=== PATIENT | female | born 1980 | race Caucasian/White ===

== ENCOUNTER 2020-05-21 08:06 | Outpatient (REF) | payer MEDICAID, SELFPAY ==
[2020-05-21 11:22] LABS: HCG Quantitative 120 mIU/mL
[2020-05-21 16:47] LABS: Hematocrit 34.6 % (37-47); Hemoglobin 11.2 g/dl (12.0-16.0); Mean Corpuscular HGB Conc 32.4 g/dl (31.0-35.0); Mean Corpuscular Volume 95.8 fL (80-98); Mean Platelet Volume 9.9 fL (9.4-12.3); Platelet Count 305 X10*3/uL (160-400); Red Blood Count 3.61 X10*6/uL (4.20-5.50); Red Cell Distribution Width 11.9 % (11.0-16.0); White Blood Count 5.7 X10*3/uL (4.8-10.8)
[2020-05-21 17:21] LABS: Anion Gap 13 (12-20); Blood Urea Nitrogen 11 mg/dL (9-16); Calcium 9.4 mg/dL (8.4-10.2); Carbon Dioxide 26 mmol/L (22-29); Chloride 105 mmol/L (96-108); Estimated Glomerular Filt Rate > 60; Glucose Random 96 mg/dL (60-115); Potassium 4.6 mmol/l (3.3-5.1); Sodium 139 mmol/L (135-145)
[2020-05-21 17:30] LABS: HCG Quantitative 110 mIU/mL
== END 2020-05-21 08:07 | disposition home or self-care (01) ==
LOC: HO.LAB 08:06
PROVIDERS: PCP Internal Medicine; Visit Provider Advanced Practice Midwife
DX: O20.9 Hemorrhage in early pregnancy, unspecified (principal); N94.89 Other specified conditions associated with female genital organs and menstrual cycle
CPT/HCPCS: 36415; 80048; 84702; 85027; 99202; 99212

== ENCOUNTER 2020-05-21 09:36 | Outpatient (REF) | payer MEDICAID, SELFPAY ==
--- NOTE | 2020-05-21 12:24 | US_ITS ---
EXAMINATION: FIRST TRIMESTER OB ULTRASOUND CLINICAL INFORMATION: Hemorrhage/bleeding in early . Beta hCG level is 120 (3-4 weeks). COMPARISON: None TECHNIQUE: Transabdominal and transvaginal first trimester OB ultrasound. FINDINGS: The uterus is anteverted and measures 11.3 x 2.7 x 5.1 cm in dimension. There is a small anterior uterine body fibroid measuring 0.9 x 0.7 x 1.1 cm. No intrauterine is seen. The endometrium does not appear thickened measuring 0.4 cm. There are several small hyperechoic foci seen in the superior endometrium. Appearance is questionable for possible calcifications or blood. There is a small simple appearing cyst just posterior to the endometrium measuring 0.3 x 0.2 x 0.2 cm. The cervix is normal appearing. The right ovary is enlarged and abnormal appearing. The right ovary measures 7.5 x 3.8 x 3.5 cm. There is a 2.4 x 2 x 1.9 cm hyperechoic area in the right ovary questionable for a complex cyst. There is an adjacent adnexal hypoechoic heterogeneous partially solid partially cystic lesion measuring 4.1 x 3.2 x 3.7 cm. There is a large amount of complex fluid surrounding the right ovary and in the posterior cul-de-sac. The left ovary is slightly enlarged, measures 4.3 x 3 x 3.5 cm and contains a 3.3 x 2.2 x 2.6 cm simple cyst. US/US OB <= 14 weeks fetus IMPRESSION: No intrauterine seen. Enlarged abnormal appearing right ovary, complex partially solid partially cystic hypoechoic right adnexal lesion and large amount of complex fluid surrounding the right ovary and in the posterior cul-de-sac. Appearance is suspicious for possible right adnexal ectopic . Given low beta hCG level, very early intrauterine and hemorrhagic right ovarian cyst could also be considered. Short-term follow-up OB ultrasound and correlation with quantitative beta hCG levels recommended. Slightly enlarged left ovary and 3.3 x 2.2 x 2.6 cm simple left ovarian cyst.
== END 2020-05-21 09:37 | disposition home or self-care (01) ==
LOC: HO.US 09:36
PROVIDERS: PCP Internal Medicine; Visit Provider Advanced Practice Midwife
DX: O20.9 Hemorrhage in early pregnancy, unspecified (principal)
CPT/HCPCS: 76801; 76817

== ENCOUNTER 2020-05-22 07:26 | Outpatient (REF) | payer MEDICAID, SELFPAY ==
[2020-05-22 08:20] LABS: Hematocrit 34.5 % (37-47); Hemoglobin 11.1 g/dl (12.0-16.0); Mean Corpuscular HGB Conc 32.2 g/dl (31.0-35.0); Mean Corpuscular Hemoglobin 30.5 pg (27.0-33.0); Mean Corpuscular Volume 94.8 fL (80-98); Mean Platelet Volume 10.1 fL (9.4-12.3); Platelet Count 293 X10*3/uL (160-400); Red Blood Count 3.64 X10*6/uL (4.20-5.50); Red Cell Distribution Width 11.9 % (11.0-16.0); White Blood Count 5.1 X10*3/uL (4.8-10.8)
[2020-05-22 08:45] LABS: HCG Quantitative 101 mIU/mL
[2020-05-28 11:31] LABS: CT PCR NOT DETECTED (Not Detect.); NG PCR NOT DETECTED (Not Detect.)
== END 2020-05-22 07:27 | disposition home or self-care (01) ==
LOC: HO.LAB 07:26
PROVIDERS: PCP Internal Medicine; Visit Provider Obstetrics & Gynecology
DX: O26.899 Other specified pregnancy related conditions, unspecified trimester (principal); O20.9 Hemorrhage in early pregnancy, unspecified; O34.80 Maternal care for other abnormalities of pelvic organs, unspecified trimester; N94.89 Other specified conditions associated with female genital organs and menstrual cycle; N83.209 Unspecified ovarian cyst, unspecified side; Z79.899 Other long term (current) drug therapy; Z87.891 Personal history of nicotine dependence
CPT/HCPCS: 36415; 84702; 85027; 87491; 87591; 99212

== ENCOUNTER 2020-05-24 12:39 | Outpatient (REF) | payer MEDICAID, SELFPAY ==
[2020-05-24 13:56] LABS: HCG Quantitative 53 mIU/mL
== END 2020-05-24 12:40 | disposition home or self-care (01) ==
LOC: HO.LAB 12:39
PROVIDERS: PCP Internal Medicine; Visit Provider Obstetrics & Gynecology
DX: O03.9 Complete or unspecified spontaneous abortion without complication (principal); O09.529 Supervision of elderly multigravida, unspecified trimester
CPT/HCPCS: 84702

== ENCOUNTER 2020-05-29 08:23 | Outpatient (REF) | payer MEDICAID, SELFPAY ==
[2020-05-29 10:55] LABS: HCG Quantitative 12 mIU/mL
== END 2020-05-29 08:24 | disposition home or self-care (01) ==
LOC: HO.LAB 08:23
PROVIDERS: PCP Internal Medicine; Visit Provider Obstetrics & Gynecology
DX: O03.9 Complete or unspecified spontaneous abortion without complication (principal); N83.209 Unspecified ovarian cyst, unspecified side
CPT/HCPCS: 84702; 99212

== ENCOUNTER 2020-06-11 10:20 | Outpatient (REF) | payer MEDICAID, SELFPAY ==
--- NOTE | 2020-06-11 10:57 | US_ITS ---
EXAMINATION: LIMITED OB ULTRASOUND CLINICAL INFORMATION: Ovarian cyst. Technologist history indicates spontaneous . COMPARISON: Previous exam 05/21/2020 TECHNIQUE: Transabdominal and transvaginal pelvic ultrasound was performed. Transvaginal exam was performed for better visualization of the uterus and ovaries. FINDINGS: The uterus is a slightly anteverted and retroflexed and measures 9.1 x 3.8 x 4.9 cm in dimension. No intrauterine is seen. Endometrial thickness measures 0.4 cm. There is no evidence of retained products of conception. There are several small echogenic foci again questionable for small calcifications. The cervix is normal appearing. There is a 1.4 x 1 x 1.2 cm hypoechoic lesion in the anterior uterine body probably representing a fibroid. Both ovaries are enlarged. The right ovary measures 7.2 x 4.8 x 1.7 cm. There is a 5 x 4.9 x 3.9 cm complex right ovarian cyst with some septations and internal echoes. This is increased from previous exam when this measured 2.4 x 2 x 1.9 cm. There is a 3 x 2.1 x 2.1 cm hypoechoic lesion in the right adnexa with thick wall, internal echoes and septations. This measured 4.1 x 3.2 x 3.7 cm on previous exam and is decreased in size. Both these lesions appear avascular. The previously identified large amount of complex fluid in the right pelvis is no longer. The the left ovary is enlarged and measures 4.8 x 2.9 x 3.6 cm. There is a complex right ovarian cyst measuring 5 x 4.9 x 3.9 cm. This has multiple septations and some internal echoes. This is increased in size from 3.3 x 2.2 x 2.6 cm on previous exam There is no fluid in the cul-de-sac. US/US OB transvaginal IMPRESSION: No evidence of intrauterine . No evidence of retained products of conception. Enlarged ovaries. Bilateral large complex ovarian cysts increased from 05/21/2020 exam. Interval decrease in size in the complex right adnexal lesion. Complex fluid in the right pelvis and cul-de-sac is no longer seen. Continued correlation with quantitative beta hCG and ultrasound follow-up recommended. Small uterine fibroid.
== END 2020-06-11 10:21 | disposition home or self-care (01) ==
LOC: HO.HMGCX 10:20
PROVIDERS: PCP Internal Medicine; Visit Provider Obstetrics & Gynecology
DX: N83.209 Unspecified ovarian cyst, unspecified side (principal); O03.9 Complete or unspecified spontaneous abortion without complication
CPT/HCPCS: 76815; 76817

== ENCOUNTER → 2020-06-13 12:08 | Outpatient (BNVA) | payer MEDICAID, SELFPAY | PROVIDERS: PCP Internal Medicine; Visit Provider Obstetrics & Gynecology | DX: Z76.89 Persons encountering health services in other specified circumstances (principal) ==

== ENCOUNTER 2020-06-19 10:59 | Outpatient (REF) | payer MEDICAID, SELFPAY ==
[2020-06-19 12:46] LABS: HCG Quantitative < 2 mIU/mL
[2020-06-20 12:52] LABS: CA-125 13 U/mL (<35)
== END 2020-06-19 11:00 | disposition home or self-care (01) ==
LOC: HO.LAB 10:59
PROVIDERS: PCP Internal Medicine; Visit Provider Obstetrics & Gynecology
DX: O03.9 Complete or unspecified spontaneous abortion without complication (principal)
CPT/HCPCS: 84702; 86304

== ENCOUNTER 2020-09-16 10:44 | Outpatient (REF) | payer MEDICAID, SELFPAY ==
--- NOTE | ~2020-09-16 | US_ITS ---
EXAMINATION: PELVIC ULTRASOUND CLINICAL INFORMATION: Ovarian cyst COMPARISON: None TECHNIQUE: Transabdominal and transvaginal pelvic ultrasound was performed. Transvaginal exam was performed for better visualization of the uterus and ovaries. FINDINGS: The uterus is anteverted and measures 7.8 x 4.5 x 5.5 cm in dimension. There is a 1.2 x 1 x 1.1 cm anterior uterine body intramural fibroid. No other focal uterine lesion is seen. Endometrial thickness is normal measuring 0.5 cm. The cervix is normal. The right ovary measures 6 3.3 x 3.2 x 2.6 cm, volume 14 mL. The left ovary measures 2.3 x 2.3 x 2.1 cm, volume 5.6 mL. There are small bilateral simple ovarian cysts, largest measuring 1.5 x 1.2 x 1.3 cm on the left. There is no fluid in the pelvis. US/US transvaginal IMPRESSION: Small anterior uterine body intramural fibroid. Small simple bilateral ovarian cysts, largest measuring 1.5 x 1.2 x 1.3 cm on the left.
--- NOTE | ~2020-09-16 | US_ITS ---
EXAMINATION: PELVIC ULTRASOUND CLINICAL INFORMATION: Ovarian cyst COMPARISON: None TECHNIQUE: Transabdominal and transvaginal pelvic ultrasound was performed. Transvaginal exam was performed for better visualization of the uterus and ovaries. FINDINGS: The uterus is anteverted and measures 7.8 x 4.5 x 5.5 cm in dimension. There is a 1.2 x 1 x 1.1 cm anterior uterine body intramural fibroid. No other focal uterine lesion is seen. Endometrial thickness is normal measuring 0.5 cm. The cervix is normal. The right ovary measures 6 3.3 x 3.2 x 2.6 cm, volume 14 mL. The left ovary measures 2.3 x 2.3 x 2.1 cm, volume 5.6 mL. There are small bilateral simple ovarian cysts, largest measuring 1.5 x 1.2 x 1.3 cm on the left. There is no fluid in the pelvis. US/US pelvic complete IMPRESSION: Small anterior uterine body intramural fibroid. Small simple bilateral ovarian cysts, largest measuring 1.5 x 1.2 x 1.3 cm on the left.
== END 2020-09-16 10:45 | disposition home or self-care (01) ==
LOC: HO.US 10:44
PROVIDERS: Visit Provider Obstetrics & Gynecology
DX: N83.299 Other ovarian cyst, unspecified side (principal)
CPT/HCPCS: 76830; 76856

== ENCOUNTER → 2020-09-30 10:42 | Outpatient (BNVA) | payer MEDICAID, SELFPAY | PROVIDERS: Visit Provider Obstetrics & Gynecology ==

== ENCOUNTER 2020-11-28 11:56 | Outpatient (REF) | payer MEDICAID, SELFPAY ==
--- NOTE | ~2020-11-28 | MM_ITS ---
EXAMINATION: MM SCREENING DIGITAL BREAST TOMOSYNTHESIS, BILATERAL CLINICAL INFORMATION: Screening. Asymptomatic. The lifetime risk of breast cancer based on the Tyrer-Cuzick Model is 9.9%. COMPARISON: Mammography: None TECHNIQUE: Digital breast tomosynthesis is performed in both the craniocaudal and mediolateral oblique views along with computer-aided detection (CAD). Synthesized 2D images are generated from the tomosynthesis. FINDINGS: The breasts are heterogeneously dense, which may obscure small masses (ACR BI-RADS breast composition Category c). There are no significant masses, abnormal calcifications, or other abnormalities. MM/MM tomosynthesis screening BI IMPRESSION: There are no significant changes from prior study. ASSESSMENT: BI-RADS 1: Negative RECOMMENDATION: Routine annual mammography screening. This patient's information was entered into a reminder system with a target due date for their next mammogram.
== END 2020-11-28 11:57 | disposition home or self-care (01) ==
LOC: HO.MAMMO 11:56
PROVIDERS: PCP Internal Medicine; Visit Provider Internal Medicine
DX: Z12.31 Encounter for screening mammogram for malignant neoplasm of breast (principal)
CPT/HCPCS: 77063; 77067

== ENCOUNTER 2021-10-02 11:57 | Outpatient (REF) | payer OTHER, SELFPAY ==
[2021-10-02 16:03] LABS: CT PCR NOT DETECTED (Not Detect.); NG PCR NOT DETECTED (Not Detect.)
[2021-10-06 14:26] LABS: HPV mRNA E6/E7 rflx Not Detected (Not Detected)
== END 2021-10-02 11:58 | disposition home or self-care (01) ==
LOC: HO.LAB 11:57
PROVIDERS: Visit Provider Obstetrics & Gynecology
DX: Z01.419 Encounter for gynecological examination (general) (routine) without abnormal findings (principal); Z11.51 Encounter for screening for human papillomavirus (HPV)
CPT/HCPCS: 87491; 87591; 87624; 88142

== ENCOUNTER 2023-04-05 10:49 | Outpatient (REF) | payer OTHER, SELFPAY ==
[2023-04-05 11:09] LABS: MANUAL DIFF FLAG NO
[2023-04-05 11:48] LABS: Basophils Absolute Auto 0.1 X10*3/uL (0.0-0.2); Basophils Percent Auto 1.1 % (0-2); Eosinophils Absolute Auto 0.5 X10*3/uL (0.0-0.4); Eosinophils Percent Auto 7.5 % (0-4); Hematocrit 36.1 % (37.0-47.0); Hemoglobin 11.9 g/dl (12.0-16.0); Imm Gran Abs Auto 0.02 X10*3/uL (0.00-0.03); Imm Gran Pct Auto 0.3 % (0.0-0.4); Lymphocytes Absolute Auto 1.4 X10*3/uL (1.2-4.9); Lymphocytes Percent Auto 22.8 % (20-40); Mean Corpuscular Hemoglobin 30.9 pg (27.0-33.0); Mean Corpuscular Volume 93.8 fL (80.0-98.0); Mean Platelet Volume 10.7 fL (9.4-12.3); Monocytes Absolute Auto 0.4 X10*3/uL (0.1-1.2); Monocytes Percent Auto 6.6 % (2-11); Neutrophils Absolute Auto 3.9 x10*3/uL (2.0-8.3); Neutrophils Percent Auto 61.7 % (45-73); Platelet Count 295 X10*3/uL (160-400); Red Blood Count 3.85 X10*6/uL (4.20-5.50); Red Cell Distribution Width 11.7 % (11.0-16.0); White Blood Count 6.2 X10*3/uL (4.8-10.8)
[2023-04-05 12:51] LABS: Alanine Aminotransferase 12 U/L (0-31); Albumin Level 4.2 g/dL (3.5-5.0); Alkaline Phosphatase 50 U/L (39-117); Anion Gap 13 (12-20); Aspartate Amino Transferase 15 U/L (5-31); Bilirubin Total 0.5 mg/dL (0.0-1.0); Blood Urea Nitrogen 12 mg/dL (9-16); Calcium 9.3 mg/dL (8.4-10.2); Carbon Dioxide 22 mmol/L (22-29); Chloride 106 mmol/L (96-108); Cholesterol 178 mg/dL (<200); Estimated Glomerular Filt Rate > 60; Glucose Random 89 mg/dL (60-115); Potassium 3.8 mmol/L (3.3-5.1); Sodium 137 mmol/L (135-145); Total Protein 7.3 g/dL (6.5-8.0)
== END 2023-04-05 10:50 | disposition home or self-care (01) ==
LOC: HO.LAB 10:49
PROVIDERS: PCP Internal Medicine; Visit Provider Internal Medicine
DX: J45.909 Unspecified asthma, uncomplicated (principal); J30.1 Allergic rhinitis due to pollen; R63.5 Abnormal weight gain; K59.00 Constipation, unspecified
CPT/HCPCS: 36415; 80053; 82465; 84443; 85025

== ENCOUNTER 2023-05-31 07:30 | Outpatient (AMB) | payer OTHER, SELFPAY ==
--- NOTE | 2023-05-31 07:33 | MHC.OFFVIS ---
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 Sexually active: Yes Sexual orientation: Straight/Heterosexual Gender identity: Female Female Reproductive History Menstrual Age of Menarche: 13 Date of last menstrual period: 05/24/23 control method: pills Total pregnancies: 4 Full term: 1 Number of Living Children: 1 Ab spontaneous: 3 Date of last pap smear: 10/02/21 Date of Mammogram: 11/28/20 Review of Systems Const All systems reviewed & are unremarkable except as noted in HPI and below Card Reports as per HPI Resp Reports as per HPI GI Reports as per HPI and Reports no additional complaints Reports as per HPI Physical Exam Vital Signs: BMI result Body Mass Index 28.1 Const General: cooperative, healthy appearing and comfortable Chest Chest palpation & inspection: normal inspection of the chest and normal palpation of entire chest wall Breast/axilla inspection: normal inspection of the breasts and normal inspection of the axillae Breast/axilla palpation: normal palpation of the breasts, normal palpation of the axillae and no axillary lymphadenopathy Resp Effort & Inspection: normal respiratory effort Auscultation: clear to auscultation bilaterally Percussion: percussion normal Cardio Palpation: normal PMI Rate: regular rate Rhythm: regular rhythm Heart sounds: no murmurs and no rubs Peripheral pulses: Peripheral pulses 2+ throughout GI Inspection: Yes normal to inspection Palpation (GI): Soft to palpation, nontender, no guarding, not rigid and No hepatosplenomegaly present Percussion: Yes normal to percussion Auscultation: normal bowel sounds Rectal Exam - Female: deferred General: Yes bladder normal to palpation External Female Exam: No lesion Speculum Exam - Vagina: normal appearance of the vagina, normal palpation, normal vaginal discharge and not erythematous Speculum Exam - Cervix: normal appearance of the cervix and normal palpation Bimanual exam- vagina & uterus: normal bimanual exam, normal palpation, uterine size normal, bladder normal to palpation, consistency normal and normal palpation Bimanual Exam- Adnexa, other: normal adnexae, no masses and no tenderness Assessment & Plan Assessment & Plan (1) Well woman exam: Code(s): Z01.419 - Encounter for gynecological examination (general) (routine) without abnormal findings Plan: Cotesting not indicated this. Mammogram ordered. Counseled the patient about the recommended dietary allowance of 1000 mg of Calcium & 600 IU of vitamin D. The patient was instructed to perform monthly self-breast exams and to schedule an annual exam in a year; All questions answered and the patient verbalized understanding. Instructed the patient to schedule annual exam in a year (2) Bloating: Code(s): R14.0 - Abdominal distension (gaseous) Plan: Discussed with the patient differential diagnosis of bloating including GI , ovarian pathology and others. Will order pelvic ultrasound to rule out adnexal pathology, instructions given the patient to schedule a 2 week ultrasound follow-up appointment and to contact her PCP for further management peer Orders: Orders US pelvic and transvaginal Today R14.0 - Abdominal distension (gaseous) MM screening mammo BI Today Z12.31 - Encounter for screening mammogram for malignant neoplasm of breast Coding Level of Care Code Est Pt Prev Care 40-64y(15694) Diagnoses Well woman exam Z01.419 Bloating R14.0
[2023-05-31 07:35] VITALS: BP 118/74; BMI 28.1
== END 2023-05-31 08:26 | disposition home or self-care (01) ==
PROVIDERS: PCP Internal Medicine; Visit Provider Obstetrics & Gynecology
DX: Z01.419 Encounter for gynecological examination (general) (routine) without abnormal findings (principal); R14.0 Abdominal distension (gaseous)
CPT/HCPCS: 99396

== ENCOUNTER → 2023-05-31 07:30 | Outpatient (BNVA) | payer OTHER, SELFPAY | PROVIDERS: PCP Internal Medicine; Visit Provider Obstetrics & Gynecology ==

== ENCOUNTER 2023-06-28 10:08 | Outpatient (REF) | payer OTHER, SELFPAY ==
--- NOTE | ~2023-06-28 | US_ITS ---
EXAMINATION: US PELVIS COMPLETE CLINICAL INFORMATION: Abdominal distention COMPARISON: Pelvic ultrasound 09/16/2020 TECHNIQUE: Transabdominal and transvaginal imaging was performed. FINDINGS: The uterus is of normal size and echogenicity measuring 8.5 x 3.2 x 5.1 cm. A regular homogeneous endometrium is identified measuring 0.3 cm. A 1 cm subserosal myoma in the anterior body of the uterus decreased from prior previously 1.2 cm. Few nonspecific punctate calcifications noted in the endometrium and cervix, possibly dystrophic such as in the setting of calcified myomas and/or vascular. Both ovaries are of normal size and echogenicity. The right measures 2.3 x 1.3 x 2.1 cm for a volume of 3.1 mL. The left measures 2.1 x 1.4 x 1.3 cm for a volume of 2.0 mL. There is no pelvic free fluid. US/US pelvic and transvaginal IMPRESSION: 1. A 1 cm subserosal myoma in the anterior body of the uterus decreased in size from prior. 2. Few nonspecific punctate calcifications noted in the endometrium and cervix, possibly dystrophic such as in the setting of calcified myomas and/or vascular.
--- NOTE | ~2023-06-28 | MM_ITS ---
EXAMINATION: MM SCREENING DIGITAL BREAST TOMOSYNTHESIS, BILATERAL CLINICAL INFORMATION: Screening. Asymptomatic. COMPARISON: Mammography: 11/28/2020. TECHNIQUE: Digital breast tomosynthesis is performed in both the craniocaudal and mediolateral oblique views along with computer-aided detection (CAD). Synthesized 2D images are generated from the tomosynthesis. FINDINGS: The breasts are heterogeneously dense, which may obscure small masses (ACR BI-RADS breast composition Category c). There are no suspicious masses, suspicious grouped calcifications, or areas of architectural distortion in either breast. The parenchymal pattern is stable from prior exams. There are no skin or axillary abnormalities. MM/MM tomosynthesis screening BI IMPRESSION: No mammographic evidence of malignancy. ASSESSMENT: BI-RADS BI-RADS 1 - Negative RECOMMENDATION: Routine annual mammography screening. 1 year F/U This examination should not preclude the clinical evaluation of a suspicious palpable abnormality. This patient's information was entered into a reminder system with a target due date for their next mammogram.
== END 2023-06-28 10:09 | disposition home or self-care (01) ==
LOC: HO.MAMMO 10:08
PROVIDERS: PCP Internal Medicine; Visit Provider Obstetrics & Gynecology
DX: Z12.31 Encounter for screening mammogram for malignant neoplasm of breast (principal); R14.0 Abdominal distension (gaseous)
CPT/HCPCS: 76830; 76856; 77063; 77067

== ENCOUNTER → 2023-06-28 10:15 | Outpatient (BNV) | payer OTHER, SELFPAY | PROVIDERS: PCP Internal Medicine; Visit Provider Radiology Diagnostic Radiology | DX: Z12.31 Encounter for screening mammogram for malignant neoplasm of breast (principal) | CPT/HCPCS: 77063; 77067 ==

== ENCOUNTER 2023-08-16 08:49 | Outpatient (AMB) | payer OTHER, SELFPAY ==
--- NOTE | 2023-08-16 08:51 | A.OFFVIS_ITS ---
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 Ultrasound done recently showed the following: IMPRESSION: 1. A 1 cm subserosal myoma in the anter ior body of the uterus decreased in size from prior. 2. Few nonspecific punctate calcificati ons noted in the endometrium and cervix, possibly dystrophic such as in the setting of calcified myomas and/or vascular. 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 Sexual orientation: Straight/Heterosexual Gender identity: Female Female Reproductive History Menstrual Age of Menarche: 13 Date of last menstrual period: 08/07/23 Review of Systems Const All systems reviewed & are unremarkable except as noted in HPI and below Reports as per HPI and Reports no additional complaints GI Reports no additional complaints Reports no additional complaints Physical Exam Vital Signs: Last Vital Signs BP 118/62 08/16/23 08:53 BMI result Body Mass Index 28.0 Assessment & Plan Assessment & Plan (1) Bloating: Code(s): R14.0 - Abdominal distension (gaseous) Plan: Discussed with the patient the finding on ultrasound showing no evidence of ovarian pathology or pathologic free fluid in the pelvis, the patient was reassured, instructions given the patient to schedule an appointment with her PCP to rule out other non obgyn nurse causes of her bloating (2) Myoma: Code(s): D21.9 - Benign neoplasm of connective and other soft tissue, unspecified Plan: Discussed with the patient the findings on pelvic ultrasound & the risk of myosarcoma; discussed with the patient the options of treatment including expectant management versus hysterectomy; the pros and cons, risks benefits of each approach were discussed with the patient including the fact that in cases of myosarcoma, surgical treatment can lead to early diagnosis and positively affects the prognosis; after further discussion, the patient decided to proceed with expectant management. Will repeat pelvic ultrasound periodically. Instructions given to patient to call in case any of the following occurs: pressure symptoms, abnormal uterine bleeding, pelvic pain; and to schedule a future office follow-up appointment for reassessment and to order a repeat ultrasound . All questions answered, the patient verbalized understanding and agreed with the plan . Coding Level of Care Code Est Pt Level 3 (78411) Diagnoses Bloating R14.0 Myoma D21.9
[2023-08-16 08:53] VITALS: BP 118/62; BMI 28.0
== END 2023-08-16 09:19 | disposition home or self-care (01) ==
LOC: HO.HWS 08:49
PROVIDERS: PCP Internal Medicine; Visit Provider Obstetrics & Gynecology
DX: R14.0 Abdominal distension (gaseous) (principal); D21.9 Benign neoplasm of connective and other soft tissue, unspecified
CPT/HCPCS: 99213

== ENCOUNTER → 2023-08-16 08:49 | Outpatient (BNVA) | payer OTHER, SELFPAY | PROVIDERS: PCP Internal Medicine; Visit Provider Obstetrics & Gynecology ==

== ENCOUNTER 2023-10-18 09:42 | Outpatient (REF) | payer OTHER, SELFPAY ==
--- NOTE | ~2023-10-18 | XR_ITS ---
EXAMINATION: XR CHEST 2 VIEWS CLINICAL INFORMATION: Bronchitis 2 weeks prior, with ongoing cough and congestion. COMPARISON: None. TECHNIQUE: Frontal and lateral views of the chest were obtained. FINDINGS: The heart, great vessels, pulmonary vasculature and mediastinum are normal. The lungs show no focal infiltrate, effusion or pneumothorax. There is mild bibasilar bronchial wall thickening. There is no acute osseous abnormality. XR/XR chest 2V IMPRESSION: 1. No focal infiltrate or congestive heart failure is seen. 2. There is mild bilateral bronchiolar wall thickening, consistent with the provided history of recent bronchitis.
== END 2023-10-18 09:43 | disposition home or self-care (01) ==
LOC: HO.XRAY 09:42
PROVIDERS: PCP Internal Medicine; Visit Provider Internal Medicine
DX: R05.9 Cough, unspecified (principal); J45.909 Unspecified asthma, uncomplicated
CPT/HCPCS: 71046

== ENCOUNTER 2024-07-17 12:48 | Outpatient (REF) | payer OTHER, SELFPAY | END 2024-07-17 12:49 | disposition home or self-care (01) | LOC: HO.MAMMO 12:48 | PROVIDERS: PCP Internal Medicine; Visit Provider Internal Medicine | DX: Z12.31 Encounter for screening mammogram for malignant neoplasm of breast (principal) | CPT/HCPCS: 77063; 77067 ==

== ENCOUNTER → 2024-07-17 13:00 | Outpatient (BNV) | payer OTHER, SELFPAY | PROVIDERS: PCP Internal Medicine; Visit Provider Internal Medicine | DX: Z12.31 Encounter for screening mammogram for malignant neoplasm of breast (principal) | CPT/HCPCS: 77063; 77067 ==

== ENCOUNTER 2024-11-20 09:31 | Outpatient (AMB) | payer OTHER, SELFPAY ==
--- NOTE | 2024-11-20 09:35 | A.OFFPC_ITS ---
Vital Signs 11/20/24 09:38 11/20/24 09:51 Height 5 ft 4 in Weight 72.575 kg BMI 27.5 BP 146/102 H 152/96 H Respiration 14 Pulse 72 Pulse Source Pulse Oximeter Temp 97.2 F Temp Source Temporal Artery Scan Pulse Oximetry (%) 99 Oxygen Delivery Method Room Air Intake Visit Reasons: refills - see comments Regional Engineer Required: No Accompanied by: Self / Same As Patient Allergies No Known Allergies Allergy (Verified 11/20/24 09:37) HPI HPI Comments History of Present Illness Details 44-year-old female with history of eczem a, asthma presents to the office today for management of chronic conditions and to establish care. Eczema-has been managing with eduplanet KK sea miranda, Shayna, and emollient moisturizers. Present on bilateral forearms Asthma-reports symptoms are uncontrolled for about 1 year. States she has been using albuterol inhaler daily. Compliant with Advair. She states that she does often experience breathlessness and shortness of breath with occasional wheezing primarily with exertion. There is occasional chest tightness. She denies any lightheadedness, palpitations, syncope. No weight gain. No edema. No cough. She does question whether uncontrolled anxiety also triggers this. Ematoao-LJE-8 score 5. Reports frequent anxiety. She does also endorse hot flashes/sweats. No unintentional weight loss. She does continue to have regular periods but is taking oral contraception. Denies any depression. Elevated blood pressure reading-blood pressure on repeat 150/96. Has never had issues with elevated blood pressures. Health maintenance: Bwwsqziea-to-vo-date Colonoscopy-has never undergone procedure Pap fzgwe-xq-ht-date ROS: General: No fevers, malaise, unintentional weight loss HEENT: No blurred vision, diplopia. No sore throat, nasal congestion, rhinorrhea, sinus pain, ear pain Cardiovascular: See HPI Respiratory: See HPI MSK: No myalgia, back pain Neuro: No headaches, weakness, paresthesias Psych: See HPI Skin: No rashes or lesions EXAM: Constitutional - Awake and Alert, No apparent distress Eyes - PERRLA, EOMI Cardiovascular - S1S2, RRR, No edema Respiratory - Normal lung expansion, Normal respiratory effort, No respiratory distress, CTA bilaterally Extremities - no calf tenderness bilaterally, no swelling Skin - Warm/Dry Neurological - Alert & oriented x3, CN II-XII in tact, 5/5 strength BUE and BLE Psychological - Appropriate affect [facility] Medical History (Updated 11/20/24 @ 10:03 by MARGARITA Sanderson) Anxiety Normocytic anemia History of asthma Social History Household Members: Spouse Household Members Other:: daughter Housing: House Alcohol intake: current Alcohol intake frequency: a few times a month Patient Tobacco Use Status: Never used Tobacco Current occupational status: employed 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 1. Little interest or pleasure in doing things: not at all 2. Feeling down, depressed, or hopeless: not at all 3. Trouble falling or staying asleep, or sleeping too much: several days 4. Feeling tired or having little energy: several days 5. Poor appetite or overeating: not at all 6. Feeling bad about yourself - or that you are a failure or have let yourself or your family down: not at all 7. Trouble concentrating on things, such as reading the newspaper or watching television: not at all 8. Moving or speaking so slowly that other people could have noticed. Or the opposite - being so fidgety or restless that you have been moving around a lot more than usual: not at all 9. Thoughts that you would be better off or of hurting yourself in some way: not at all Total score: 2 Source: Developed by Drs. Geovanny Alvarez, Marlin Lopez, Jeffy Lilly and colleagues, with an educational lakshmi from [employer]. Thrive Questionnaire Date Thrive assessed: 11/20/24 I am a: Patient What is your living situation today?: I have a steady place to live Within the past 12 months, did the food you bought not last and you didn't have the money to get more?: Never true Within the past 12 months, did you worry whether your food would run out before you got money to buy more?: Never true Do you have trouble paying for medicines?: No Do you have trouble getting transportation to medical appointments?: No Do you have trouble paying your heating and electricity bill?: No Do you have trouble taking care of your child, family member or friend?: No Do you have trouble with day-to-day activities such as bathing, preparing meals, shopping, managing finances, etc.?: No Are you currently unemployed and looking for a job?: No Are you interested in more education?: No Please select the resources that you would like help with: None THRIVE Score: 0 PRADEEP-7 AMB Questionnaire PRADEEP-7 Date PRADEEP - 7 assessed: 11/20/24 Feeling nervous, anxious, or on edge: 1 = Several days Not being able to stop or control worryin = Several days Worrying too much about different things: 1 = Several days Trouble relaxin = Several days Being so restless that it is hard to sit still: 0 = Not at all Becoming easily annoyed or irritable: 1 = Several days Feeling afraid as if something awful might happen: 0 = Not at all Total PRADEEP-7 score (0-4 normal; 5-9 mild; 10-14 moderate; 15-21 severe): 5 Source: Developed by Drs. Geovanny Alvarez, Marlin Lopez, Jeffy Lilly and colleagues, with an educational lakshmi from [employer]. Physical exam (Primary Care) Vital Signs: Last Vital Signs Temp 97.2 F 11/20/24 09:38 Pulse 72 11/20/24 09:38 Resp 14 11/20/24 09:38 BP 152/96 H 11/20/24 09:51 Pulse Ox 99 11/20/24 09:38 Oxygen Delivery Method Room Air 11/20/24 09:38 BMI result Body Mass Index 27.5 Tobacco/Smoking Status: Tobacco use Status Patient Tobacco Use Status Never used Tobacco 11/20/24 09:40 PHQ-9: PHQ-9 Score PHQ-9: Total score 2 11/20/24 09:57 Thrive Assessment: Date of Thrive Assessment Date Thrive assessed 11/20/24 11/20/24 09:57 Coding Level of Care Code New Pt Level 4 (51958) Complex EM visit Add On G2211 Diagnoses Normocytic anemia D64.9 Asthma J45.909 Elevated blood pressure reading R03.0 Anxiety F41.9 Breathlessness R06.81 Assessment & Plan Assessment & Plan (1) Normocytic anemia: Code(s): D64.9 - Anemia, unspecified Category: Medical Plan: Chronic. CBC ordered. Will also evaluate iron panel. (2) Asthma: Code(s): J45.909 - Unspecified asthma, uncomplicated Category: Medical Plan: Uncontrolled. Though question component of anxiety that could be contributing symptoms. Continue Advair, albuterol as needed. She is referred for PFT. Continue allergy medications. (3) Elevated blood pressure reading: Code(s): R03.0 - Elevated blood-pressure reading, without diagnosis of hypertension Category: Medical Plan: No prior history of elevated blood pressures, no history of hypertension. We will recheck blood pressure at follow-up visit in 6 weeks. (4) Anxiety: Code(s): F41.9 - Anxiety disorder, unspecified Category: Medical Plan: Uncontrolled. We will trial sertraline 50 mg daily. She is counseled on dosing as well as side effects including black box warning. (5) Breathlessness: Code(s): R06.81 - Apnea, not elsewhere classified Category: Medical Plan: Possibly related to asthma versus anxiety. We will check chest x-ray, referred for PFT. Given she is also taking estrogen containing OCP, will also check D- dimer. Plan Follow-up in the office in 6 weeks. Take medications as prescribed. Labs to be completed following visit today as well as chest x-ray. Referred for PFT. Orders: Orders XR chest 2V Today R06.09 - Other forms of dyspnea, R06.81 - Apnea, not elsewhere classified Basic Metabolic Panel Today D64.9 - Anemia, unspecified, J45.909 - Unspecified asthma, uncomplicated, Z13.220 - Encounter for screening for lipoid disorders Lipid Panel Today D64.9 - Anemia, unspecified, J45.909 - Unspecified asthma, uncomplicated, Z13.220 - Encounter for screening for lipoid disorders PFT pulmonary function test Today J45.909 - Unspecified asthma, uncomplicated D Dimer High Sensitivity Today R06.09 - Other forms of dyspnea, R06.81 - Apnea, not elsewhere classified Complete Blood Count Auto Diff Today D64.9 - Anemia, unspecified, J45.909 - Un specified asthma, uncomplicated, Z13.220 - Encounter for screening for lipoid disorders IRON PROFILE Today D64.9 - Anemia, unspecified, J45.909 - Unspecified asthma, uncomplicated, Z13. - Encounter for screening for lipoid disorders Vitamin D 25-OH Total Today D64.9 - Anemia, unspecified, J45.909 - Unspecified asthma, uncomplicated, Z13. - Encounter for screening for lipoid disorders Medications: New sertraline Take 1/2 tab daily x 7 days, then take 1 tab daily 50 mg PO DAILY 30 tabs 0RF
[2024-11-20 09:38] VITALS: BP 146/102; PULSE 72; RESP 14; TEMP 36.2; O2SAT 99; BMI 27.5
[2024-11-20 09:51] VITALS: BP 152/96
== END 2024-11-20 09:59 | disposition home or self-care (01) ==
LOC: HO.HMCHD 09:31
PROVIDERS: PCP Internal Medicine; Visit Provider Physician Assistant
DX: D64.9 Anemia, unspecified (principal); J45.909 Unspecified asthma, uncomplicated; R03.0 Elevated blood-pressure reading, without diagnosis of hypertension; F41.9 Anxiety disorder, unspecified; R06.81 Apnea, not elsewhere classified

== ENCOUNTER 2024-11-20 09:31 | Outpatient (REF) | payer OTHER, SELFPAY ==
--- NOTE | ~2024-11-20 | XR_ITS ---
EXAMINATION: XR CHEST CLINICAL INFORMATION: R06.81 - Apnea, not elsewhere classified COMPARISON: None available. TECHNIQUE: 2 views of the chest were obtained. FINDINGS: The cardiac, hilar, and mediastinal contours are normal. The lungs are clear bilaterally. There is no pneumothorax or pleural effusion. There is no focal osseous or soft tissue abnormality. XR/XR chest 2V IMPRESSION: Normal chest. Electronically signed by: Eric Messer MD 11/20/2024 03:31 PM EDT
[2024-11-20 10:16] LABS: MANUAL DIFF FLAG NO
[2024-11-20 11:06] LABS: Basophils Percent Auto 0.8 % (0-2); Eosinophils Absolute Auto 0.3 X10*3/uL (0.0-0.4); Eosinophils Percent Auto 5.4 % (0-4); Hematocrit 36.8 % (37.0-47.0); Hemoglobin 12.4 g/dl (12.0-16.0); Imm Gran Abs Auto 0.01 X10*3/uL (0.00-0.03); Imm Gran Pct Auto 0.2 % (0.0-0.4); Lymphocytes Absolute Auto 1.5 X10*3/uL (1.2-4.9); Lymphocytes Percent Auto 29.4 % (20-40); Mean Corpuscular HGB Conc 33.7 g/dl (31.0-35.0); Mean Corpuscular Hemoglobin 30.8 pg (27.0-33.0); Mean Corpuscular Volume 91.3 fL (80.0-98.0); Mean Platelet Volume 10.4 fL (9.4-12.3); Monocytes Absolute Auto 0.3 X10*3/uL (0.1-1.2); Monocytes Percent Auto 6.8 % (2-11); Neutrophils Absolute Auto 2.9 x10*3/uL (2.0-8.3); Neutrophils Percent Auto 57.4 % (45-73); Platelet Count 230 X10*3/uL (160-400); Red Blood Count 4.03 X10*6/uL (4.20-5.50); Red Cell Distribution Width 11.4 % (11.0-16.0)
[2024-11-20 11:15] LABS: D Dimer High Sensitivity < 150 NG/ML
[2024-11-20 11:57] LABS: Anion Gap 10 (12-20); Blood Urea Nitrogen 10 mg/dL (9-16); Calcium 8.7 mg/dL (8.4-10.2); Carbon Dioxide 26 mmol/L (22-29); Chloride 106 mmol/L (96-108); Cholesterol 186 mg/dL (<200); Estimated Glomerular Filt Rate > 60; Glucose Random 92 mg/dL (60-115); HDL Cholesterol 65 mg/dL (>40); Iron 72 mcg/dL (30-160); LDL Cholesterol Calculated 100 mg/dL (<100); Percent Iron Saturation 22 % (15-50); Potassium 4.1 mmol/L (3.3-5.1); Sodium 138 mmol/L (135-145); Total Iron Binding Capacity 323 mcg/dL (228-428); Triglycerides 107 mg/dL (<150); Unsaturated Iron Binding 251 ug/dL
[2024-11-20 12:20] LABS: Vitamin D 25-OH Total 11.8 ng/mL (>30)
== END 2024-11-20 09:32 | disposition home or self-care (01) ==
LOC: HO.LAB 09:31
PROVIDERS: PCP Internal Medicine; Visit Provider Physician Assistant
DX: J45.909 Unspecified asthma, uncomplicated (principal); D64.9 Anemia, unspecified; Z13.220 Encounter for screening for lipoid disorders; R06.09 Other forms of dyspnea; R06.81 Apnea, not elsewhere classified
CPT/HCPCS: 36415; 71046; 80048; 80061; 82306; 83540; 85025; 85379

== ENCOUNTER → 2024-11-20 10:16 | Outpatient (BNV) | payer OTHER, SELFPAY | PROVIDERS: PCP Internal Medicine; Visit Provider Radiology Diagnostic Radiology | DX: R06.81 Apnea, not elsewhere classified (principal) | CPT/HCPCS: 71046 ==

== ENCOUNTER 2024-12-25 10:32 | Outpatient (AMB) | payer OTHER, SELFPAY ==
--- NOTE | 2024-12-25 10:40 | A.OFFVIS_ITS ---
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 No complaints. 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 Sexual orientation: Straight/Heterosexual Gender identity: Female Female Reproductive History Menstrual Age of Menarche: 13 Date of last pap smear: 10/02/21 Date of Mammogram: 07/17/24 Review of Systems Const All systems reviewed & are unremarkable except as noted in HPI and below Card Reports as per HPI Resp Reports as per HPI GI Reports as per HPI and Reports no additional complaints Reports as per HPI Physical Exam Vital Signs: BMI result Body Mass Index 27.5 Const General: cooperative, healthy appearing and comfortable Chest Chest palpation & inspection: normal inspection of the chest and normal palpation of entire chest wall Breast/axilla inspection: normal inspection of the breasts and normal inspection of the axillae Breast/axilla palpation: normal palpation of the breasts, normal palpation of the axillae and no axillary lymphadenopathy Resp Effort & Inspection: normal respiratory effort Auscultation: clear to auscultation bilaterally Percussion: percussion normal Cardio Palpation: normal PMI Rate: regular rate Rhythm: regular rhythm Heart sounds: no murmurs and no rubs Peripheral pulses: Peripheral pulses 2+ throughout GI Inspection: Yes normal to inspection Palpation (GI): Soft to palpation, nontender, no guarding, not rigid and No hepatosplenomegaly present Percussion: Yes normal to percussion Auscultation: normal bowel sounds Rectal Exam - Female: deferred General: Yes bladder normal to palpation External Female Exam: No lesion Speculum Exam - Vagina: normal appearance of the vagina, normal palpation, normal vaginal discharge and not erythematous Speculum Exam - Cervix: normal appearance of the cervix and normal palpation Bimanual exam- vagina & uterus: normal bimanual exam, normal palpation, uterine size normal, bladder normal to palpation, consistency normal and normal palpation Bimanual Exam- Adnexa, other: normal adnexae, no masses and no tenderness Assessment & Plan Assessment & Plan (1) Well woman exam: Code(s): Z01.419 - Encounter for gynecological examination (general) (routine) without abnormal findings Category: Medical Plan: Cotesting not indicated this year. Instructions given the patient to schedule next screening Mammogram in 07/16. Will refer to GI for screening colonoscopy Counseled the patient about the recommended dietary allowance of 1000 mg of Calcium & 600 IU of vitamin D. The patient was instructed to perform monthly self-breast exams and to schedule an annual exam in a year; All questions answered and the patient verbalized understanding. Instructed the patient to schedule annual exam in a year Orders: Referrals Gastroenterology Referral Z12.11 - Encounter for screening for malignant neoplasm of colon Coding Level of Care Code Est Pt Prev Care 40-64y(27840) Diagnoses Well woman exam Z01.419
[2024-12-25 10:42] VITALS: BP 146/90; BMI 27.5
== END 2024-12-25 11:03 | disposition home or self-care (01) ==
LOC: HO.HWS 10:32
PROVIDERS: PCP Internal Medicine; Visit Provider Obstetrics & Gynecology
DX: Z01.419 Encounter for gynecological examination (general) (routine) without abnormal findings (principal)
CPT/HCPCS: 99396; 99459

== ENCOUNTER 2025-01-01 10:02 | Outpatient (AMB) | payer OTHER, SELFPAY ==
--- NOTE | 2025-01-01 10:03 | MHC.PC.OV ---
Vital Signs 01/01/25 10:08 01/01/25 10:25 Height 5 ft 4 in Weight 68.946 kg BMI 26.1 BP 154/86 H 160/96 H Blood Pressure Location Rt brachial Position Sitting Respiration 16 Pulse 79 Pulse Source Pulse Oximeter Temp 97.3 F Temp Source Temporal Artery Scan Pulse Oximetry (%) 98 Oxygen Delivery Method Room Air Intake Visit Reasons: 6 Week F/U - see comments Mainstreaming Facilitator Required: No Accompanied by: Self / Same As Patient Allergies No Known Allergies Allergy (Verified 01/01/25 10:04) Medication List - Last Reconciled 01/01/25 by MARGARITA Sanderson albuterol sulfate 90 mcg/actuation 2 puffs inhalation Q6H PRN cholecalciferol (vitamin D3) 1,250 mcg PO QWEEK desogestrel-ethinyl estradiol 0.15-0.03 mg (Apri) 1 tab PO DAILY 3 months fexofenadine (Shayna Allergy) 180 mg PO DAILY fluticasone propion-salmeterol 250-50 mcg/dose (Advair Diskus) 1 inh inhalation BID losartan 50 mg PO DAILY sertraline 75 mg (1.5 x 50 mg) PO Q24H triamcinolone acetonide 0.1% 1 appl topical BID PRN Tobacco use date assessed: 01/01/25 HPI HPI Comments History of Present Illness Details 44-year-old female with history of asthma, elevated blood pressure readings, anxiety presents to the office today for evaluation. Asthma-controlled. Has been using Advair with rare use of albuterol inhaler. She is requesting forms for PMLF for intermittent time off due to asthma flares. Anxiety-does report improvements and anxiety with sertraline that was initiated 6 weeks ago. Gets them in score improved from 5-3. No panic Hypertension-has had multiple elevated blood pressure readings over the past months. Blood pressure on recheck in the office today 160/96. She does report drinking alcohol several times weekly with 3 drinks consumed in 1 session. She is a former smoker. On review of last labs, there is no significant kidney disease. ROS: General: No fevers, malaise, unintentional weight loss HEENT: No blurred vision, diplopia. No sore throat, nasal congestion, rhinorrhea, sinus pain, ear pain Cardiovascular: No chest pain, palpitations, or leg edema Respiratory: No shortness of breath, wheezing, cough GI: No abdominal pain, nausea, vomiting, diarrhea, constipation, melena, hematochezia : No dysuria, hematuria, increased urinary frequency, decreased urinary output MSK: No myalgia, back pain Neuro: No headaches, weakness, paresthesias Skin: No rashes or lesions EXAM: Constitutional - Awake and Alert, No apparent distress Eyes - PERRL Cardiovascular - S1S2, RRR, No edema Respiratory - Normal lung expansion, Normal respiratory effort, No respiratory distress, CTA bilaterally Extremities - no calf tenderness bilaterally, no swelling Skin - Warm/Dry Neurological - Alert & oriented x3 Psychological - Appropriate affect [facility] Medical History (Updated 01/01/25 @ 10:31 by MARGARITA Sanderson) HTN (hypertension) Anxiety Normocytic anemia History of asthma Social History Household Members: Spouse Household Members Other:: daughter Housing: House Alcohol intake: current Alcohol intake frequency: a few times a week Patient Tobacco Use Status: Former Tobacco user e-Cigarette/Vaping Use: Never Used Current occupational status: employed 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 How often do you have a drink containing alcohol?: Monthly or less 2. How many drinks containing alcohol do you have on a typical day when you are drinking?: 1 or 2 Total Score: 1 SUDHAKAR-7 AMB Questionnaire SUDHAKAR-7 Date SUDHAKAR - 7 assessed: 11/20/24 Feeling nervous, anxious, or on edge: 1 = Several days Not being able to stop or control worryin = Several days Worrying too much about different things: 0 = Not at all Trouble relaxin = Several days Being so restless that it is hard to sit still: 0 = Not at all Becoming easily annoyed or irritable: 0 = Not at all Feeling afraid as if something awful might happen: 0 = Not at all Total SUDHAKAR-7 score (0-4 normal; 5-9 mild; 10-14 moderate; 15-21 severe): 3 Source: Developed by Drs. Geovanny L. AntonioMarlin reed, Jeffy Lilly and colleagues, with an educational lakshmi from [employer]. Physical exam (Primary Care) Vital Signs: Last Vital Signs Temp 97.3 F 01/01/25 10:08 Pulse 79 01/01/25 10:08 Resp 16 01/01/25 10:08 BP 154/86 H 01/01/25 10:08 Pulse Ox 98 01/01/25 10:08 Oxygen Delivery Method Room Air 01/01/25 10:08 BMI result Body Mass Index 26.1 Tobacco/Smoking Status: Tobacco use Status Tobacco use date assessed 01/01/25 01/01/25 10:12 Patient Tobacco Use Status Former Tobacco user 01/01/25 10:12 e-Cigarette/Vaping Use Never Used 01/01/25 10:12 Thrive Assessment: Date of Thrive Assessment Date Thrive assessed 11/20/24 01/01/25 10:12 Coding Level of Care Code Est Pt Level 4 (70162) Diagnoses Anxiety F41.9 HTN (hypertension) I10 Asthma J45.909 Assessment & Plan Assessment & Plan (1) Anxiety: Code(s): F41.9 - Anxiety disorder, unspecified Category: Medical Plan: Improved, but still present. Sudhakar 7 score 3. Would like to increase sertraline to 75 mg daily. Continue with coping mechanisms (2) HTN (hypertension): Code(s): I10 - Essential (primary) hypertension Category: Medical Plan: Uncontrolled. Prescribed losartan 50 mg daily. Counseled on dosing and side effects. (3) Asthma: Code(s): J45.909 - Unspecified asthma, uncomplicated Category: Medical Plan: Stable. Continue maintenance inhalers, albuterol p.r.n.. Advised to bring PFML paperwork to the office for completion Plan Follow-up in the office in 2-3 weeks for blood pressure check Medications: New losartan 50 mg PO DAILY 90 tabs 1RF Changed From sertraline 50 mg PO Q24H 90 tabs 1RF To sertraline 75 mg (1.5 x 50 mg) PO Q24H 90 tabs 1RF
[2025-01-01 10:08] VITALS: BP 154/86; PULSE 79; RESP 16; TEMP 36.3; O2SAT 98; BMI 26.1
[2025-01-01 10:25] VITALS: BP 160/96
== END 2025-01-01 10:29 | disposition home or self-care (01) ==
LOC: HO.HMCHD 10:03
PROVIDERS: PCP Physician Assistant; Visit Provider Physician Assistant
DX: F41.9 Anxiety disorder, unspecified (principal); I10 Essential (primary) hypertension; J45.909 Unspecified asthma, uncomplicated

== ENCOUNTER 2025-01-22 08:10 | Outpatient (AMB) | payer OTHER, SELFPAY ==
--- NOTE | 2025-01-22 08:13 | A.OFFPC_ITS ---
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 Accompanied by: Self / Same As Patient Allergies No Known Allergies Allergy (Verified 01/22/25 08:32) Medication List - Last Reconciled 01/22/25 by Olivier White MD albuterol sulfate 90 mcg/actuation 2 puffs inhalation Q6H PRN cholecalciferol (vitamin D3) 1,250 mcg PO QWEEK desogestrel-ethinyl estradiol 0.15-0.03 mg (Apri) 1 tab PO DAILY 3 months fexofenadine (Shayna Allergy) 180 mg PO DAILY fluticasone propion-salmeterol 250-50 mcg/dose (Advair Diskus) 1 inh inhalation BID fluticasone propion-salmeterol 45-21 mcg/actuation 1 puff inhalation BID hydrochlorothiazide 25 mg PO DAILY losartan 50 mg PO DAILY sertraline 75 mg (1.5 x 50 mg) PO Q24H triamcinolone acetonide 0.1% 1 appl topical BID PRN Tobacco use date assessed: 01/01/25 [facility] Medical History HTN (hypertension) Anxiety Normocytic anemia History of asthma Social History Household Members: Spouse Household Members Other:: daughter Housing: House Alcohol intake: current Alcohol intake frequency: a few times a week Patient Tobacco Use Status: Former Tobacco user e-Cigarette/Vaping Use: Never Used Current occupational status: employed 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 Geovanny Alvarez, Marlin Lopez, Jeffy Lilly and colleagues, with an educational lakshmi from [employer]. Physical exam (Primary Care) Vital Signs: Last Vital Signs Temp 97.7 F 01/22/25 08:17 Pulse 76 01/22/25 08:17 Resp 16 01/22/25 08:17 BP 156/66 H 01/22/25 08:17 Pulse Ox 99 01/22/25 08:17 Oxygen Delivery Method Room Air 01/22/25 08:17 Care Plan Goal for BP management: Elevated BP, diuretic added to the regimen BMI result Body Mass Index 27.1 Tobacco/Smoking Status: Tobacco use Status Tobacco use date assessed 01/01/25 01/22/25 08:19 Patient Tobacco Use Status Former Tobacco user 01/22/25 08:19 e-Cigarette/Vaping Use Never Used 01/22/25 08:19 Thrive Assessment: Date of Thrive Assessment Date Thrive assessed 11/20/24 01/22/25 08:19 Coding Level of Care Code Est Pt Level 4 (51655) Complex EM visit Add On G2211 Diagnoses Anxiety F41.9 HTN (hypertension) I10 Assessment & Plan Assessment & Plan (1) Anxiety: Code(s): F41.9 - Anxiety disorder, unspecified Category: Medical Plan: Continue Sertraline at same dosage (2) HTN (hypertension): Code(s): I10 - Essential (primary) hypertension Category: Medical Plan: BP is still elevated. HCTZ added to the regimen. Plan History of Present Illness - The patient is a 44-year-old female presenting with management of hypertension and anxiety, and discussion of preventative care measures. - Essential Hypertension: The patient is on losartan and has a family history of hypertension. Her blood pressure remains elevated despite medication. - Anxiety Disorder: The patient's sertraline dosage was increased to 75 mg, which has improved her symptoms. - Asthma: The patient experiences occasional flare-ups, requiring time off work. She has [facility] for these episodes. - Preventative care: The patient prefers a colonoscopy for colorectal cancer screening and has no known family history of the disease. 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 - Family: Lives with her 18-year-old daughter, who is a red mud thickener operator and plans to study finance in college. The patient's partner is also present in the household. - Exercise: The patient walks frequently as part of her job but has not engaged in additional exercise recently. - Diet: Reports a decent diet and is advised to monitor weight due to medication effects. Review of Systems - Cardiovascular: Reports family history of hypertension. Denies smoking. - Respiratory: Reports occasional asthma flare-ups. - Psychological: Reports improvement in anxiety symptoms with increased sertraline dosage. Physical Exam General: Cooperative and healthy appearing Nutritional Appearance: Well nourished Orientation/consciousness: Patient oriented x3 Limitations: No limitations Head: Normal to inspection General: Appearance normal, both eyes and all related structures Neck: Normal visual inspection Chest: Normal palpation of entire chest wall Respiratory: Asthma flares up occasionally, requires paperwork for PFMLA. ormal respiratory effort Neurology: Patient oriented x3. Results Plan 1. Essential Hypertension - Continue losartan and add a second antihypertensive medication for better control. - Monitor blood pressure regularly and adjust medications as needed. 2. Anxiety Disorder - Continue sertraline at 75 mg and monitor for symptom improvement. 3. Asthma - Provide PFMLA paperwork to accommodate work absences during flare-ups. 4. Preventative Care: Colon Cancer Screening - Schedule a colonoscopy as per patient's preference. Discussion Notes I discussed with the patient the importance of managing her hypertension with a combination of medications and regular monitoring. We also talked about her anxiety management with sertraline and the need for PFMLA paperwork to manage her asthma-related work absences. Additionally, we reviewed colorectal cancer screening options, and she opted for a colonoscopy. Patient Instructions - Continue taking losartan and sertraline as prescribed. - Monitor blood pressure regularly at home. - Maintain a healthy diet and exercise routine. - Schedule and attend the colonoscopy appointment. - Submit PFMLA paperwork to employer for asthma-related absences. Orders: Referrals Gastroenterology Referral Z12.11 - Encounter for screening for malignant neoplasm of colon Medications: New hydrochlorothiazide 25 mg PO DAILY 90 tabs 1RF
[2025-01-22 08:17] VITALS: BP 156/66; PULSE 76; RESP 16; TEMP 36.5; O2SAT 99; BMI 27.1
== END 2025-01-22 08:31 | disposition home or self-care (01) ==
LOC: HO.HMCHD 08:11
PROVIDERS: PCP Physician Assistant; Visit Provider Internal Medicine
DX: F41.9 Anxiety disorder, unspecified (principal); I10 Essential (primary) hypertension

== ENCOUNTER 2025-03-05 08:18 | Outpatient (AMB) | payer OTHER, SELFPAY ==
--- NOTE | 2025-03-05 08:19 | A.OFFVIS_ITS ---
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 Sexual orientation: Straight/Heterosexual Gender identity: Female Female Reproductive History Menstrual Age of Menarche: 13 Date of last menstrual period: 02/21/25 Review of Systems Const All systems reviewed & are unremarkable except as noted in HPI and below Reports as per HPI and Reports no additional complaints GI Reports no additional complaints Reports no additional complaints Physical Exam Vital Signs: Last Vital Signs BP 138/82 03/05/25 08:24 BMI result Body Mass Index 27.1 Assessment & Plan Assessment & Plan (1) Family planning: Code(s): Z30.09 - Encounter for other general counseling and advice on contraception Category: Social Hx Plan: Discussed with the patient the different options of control including control pills/Nuvaring, DMPA, different types of IUD ?s ( cu vs progesterone) , sterilization. All the pros, cons, risks and benefits of each were discussed with the patient. The patient decided to go ahead with Mirena IUD, so a more detailed discussion was carried on including mechanism of action, risks (infection, uterine perforation, failure with ectopic , septic AB, ovarian cyst and pelvic pain, increased breast cancer risk and others) benefits (efficient contraceptive method, others), GC/CG will be taken during IUD insertion and the patient was asked to call day one of next cycle for IUD insertion. Coding Level of Care Code Est Pt Level 3 (07380) Diagnoses Family planning Z30.09
[2025-03-05 08:24] VITALS: BP 138/82; BMI 27.1
== END 2025-03-05 08:58 | disposition home or self-care (01) ==
LOC: HO.HWS 08:18
PROVIDERS: PCP Physician Assistant; Visit Provider Obstetrics & Gynecology
DX: Z30.09 Encounter for other general counseling and advice on contraception (principal)
CPT/HCPCS: 99213

== ENCOUNTER 2025-03-27 13:52 | Outpatient (AMB) | payer OTHER, SELFPAY ==
--- NOTE | 2025-03-27 13:47 | MHC.PC.OV ---
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 Accompanied by: Self / Same As Patient Allergies No Known Allergies Allergy (Verified 03/27/25 13:47) Medication List - Last Reconciled 03/27/25 by MARGARITA Sanderson albuterol sulfate 90 mcg/actuation 2 puffs inhalation Q6H PRN fexofenadine (Shayna Allergy) 180 mg PO DAILY PRN fluticasone propion-salmeterol 230-21 mcg/actuation 2 puffs inhalation BID hydrochlorothiazide 25 mg PO DAILY losartan 50 mg PO DAILY sertraline 75 mg (1.5 x 50 mg) PO Q24H triamcinolone acetonide 0.1% 1 appl topical BID PRN Tobacco use date assessed: 01/01/25 HPI HPI Comments History of Present Illness Details 44-year-old female with history of asthma, elevated blood pressure readings, anxiety presents to the office today for evaluation. Asthma-controlled. Has been using Advair with rare use of albuterol inhaler. Reports she prefers the inhaler rather than powder. Has FMLA but reports she may require increase to 2 days, 2 times per month for intermittent flare-ups which typically occur during this time per year. She is a former smoker. Has upcoming appointment with pulmonology in 2 months. Anxiety-does report improvements and anxiety with sertraline that was initiated 6 weeks ago. Has been experiencing panic attacks related to her grandfather's passing recently as well as her daughter leaving for college but is doing better. Hypertension-has had multiple elevated blood pressure readings over the past months. Now taking losartan 50 mg daily and hydrochlorothiazide 25 mg daily. Has also been taken off of her OCP and will be starting Mirena ROS: General: No fevers, malaise, unintentional weight loss HEENT: No blurred vision, diplopia. No sore throat, nasal congestion, rhinorrhea, sinus pain, ear pain Cardiovascular: No chest pain, palpitations, or leg edema Respiratory: No shortness of breath, wheezing, cough GI: No abdominal pain, nausea, vomiting, diarrhea, constipation, melena, hematochezia : No dysuria, hematuria, increased urinary frequency, decreased urinary output MSK: No myalgia, back pain Neuro: No headaches, weakness, paresthesias Skin: No rashes or lesions EXAM: Constitutional - Awake and Alert, No apparent distress Eyes - PERRL Cardiovascular - S1S2, RRR, No edema Respiratory - Normal lung expansion, Normal respiratory effort, No respiratory distress, CTA bilaterally Extremities - no calf tenderness bilaterally, no swelling Skin - Warm/Dry Neurological - Alert & oriented x3 Psychological - Appropriate affect [facility] Medical History HTN (hypertension) Anxiety Normocytic anemia History of asthma Social History Household Members: Spouse Household Members Other:: daughter Housing: House Alcohol intake: current Alcohol intake frequency: a few times a week Patient Tobacco Use Status: Former Tobacco user e-Cigarette/Vaping Use: Never Used Current occupational status: employed 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 Geovanny Alvarez, Marlin Lopez, Jeffy Lilly and colleagues, with an educational lakshmi from [employer]. Physical exam (Primary Care) Vital Signs: Last Vital Signs Temp 96.8 F 03/27/25 13:58 Pulse 68 03/27/25 13:58 Resp 16 03/27/25 13:58 BP 132/84 03/27/25 13:58 Pulse Ox 98 03/27/25 13:58 Oxygen Delivery Method Room Air 03/27/25 13:58 BMI result Body Mass Index 27.3 Tobacco/Smoking Status: Tobacco use Status Tobacco use date assessed 01/01/25 03/27/25 13:49 Patient Tobacco Use Status Former Tobacco user 03/27/25 13:49 e-Cigarette/Vaping Use Never Used 03/27/25 13:49 Thrive Assessment: Date of Thrive Assessment Date Thrive assessed 11/20/24 03/27/25 13:49 Coding Level of Care Code Est Pt Level 4 (46008) Complex EM visit Add On G2211 Diagnoses Anxiety F41.9 HTN (hypertension) I10 Asthma J45.909 Assessment & Plan Assessment & Plan (1) Anxiety: Code(s): F41.9 - Anxiety disorder, unspecified Category: Medical Plan: Greatly improved. Continue sertraline 75 mg daily. Positive coping mechanisms (2) HTN (hypertension): Code(s): I10 - Essential (primary) hypertension Category: Medical Plan: Controlled. Continue off of OCP. Continue hydrochlorothiazide and losartan as prescribed (3) Asthma: Code(s): J45.909 - Unspecified asthma, uncomplicated Category: Medical Plan: Stable. Continue maintenance inhalers, albuterol p.r.n.. Follow-up with pulmonology as scheduled. Will adjust FMLA paperwork once received Plan Follow-up in the office in 6 months Medications: New fluticasone propion-salmeterol 230-21 mcg/actuation 2 puffs inhalation BID 12 grams 1RF Discontinued cholecalciferol (vitamin D3) Discontinued Reason: Doctor's Order 1,250 mcg PO QWEEK 6 caps 0RF fluticasone propion-salmeterol 250-50 mcg/dose (Wixela Inhub) Discontinued Reason: Doctor's Order 1 inh PO BID 60 ea 1RF
[2025-03-27 13:58] VITALS: BP 132/84; PULSE 68; RESP 16; TEMP 36; O2SAT 98; BMI 27.3
== END 2025-03-27 14:12 | disposition home or self-care (01) ==
LOC: HO.HMCHD 13:52
PROVIDERS: PCP Physician Assistant; Visit Provider Physician Assistant
DX: F41.9 Anxiety disorder, unspecified (principal); I10 Essential (primary) hypertension; J45.909 Unspecified asthma, uncomplicated

== ENCOUNTER 2025-06-04 10:37 | Outpatient (AMB) | payer OTHER, SELFPAY ==
[2025-06-04 10:39] VITALS: BP 142/88; PULSE 77; O2SAT 99; BMI 29.7
--- NOTE | 2025-06-04 10:39 | MHC.OFFVIS ---
Vital Signs 06/04/25 10:39 Height 5 ft 4 in Weight 173 lb 1.006 oz BMI 29.7 BP 142/88 H Blood Pressure Location Lt brachial Position Sitting Pulse 77 Pulse Source Pulse Oximeter Pulse Oximetry (%) 99 Oxygen Delivery Method Room Air Intake Visit Reasons: Asthma Allergies No Known Allergies Allergy (Verified 06/04/25 10:42) HPI Comments Details: Dariana is a pleasant 44-year-old female, former less than 10 pack year history, quit 19 years ago with underlying childhood asthma. She was referred by PCP for pulmonary evaluation. She has a history of asthma since and has never required intubation, although she has used a nebulizer in the past. She reports using her maintenance Advair inhaler, which she finds to be working for the most part, but still requires daily use of her albuterol inhaler for wheezing and shortness of breath. Her asthma symptoms are triggered by cold weather and illnesses such as sinus infections, which she reports getting frequently, and bronchitis, which she had twice last year. She notes that when she gets sick, the illness tends to linger and can take up to a month for her to fully recover. She also has allergies and owns two cats. She has never had allergy testing. The patient has a remote smoking history, having started at age 15 and quit 19 years ago when she was . She had a normal chest X-ray in November but has never undergone a pulmonary function test. Her family history is positive for asthma in her mother and grandmother. She denies any occupational exposures. Results - Labs: Previous blood work showed an elevated eosinophil count. - Imaging: Chest X-ray in November was normal. 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 Sexual orientation: Straight/Heterosexual Gender identity: Female Female Reproductive History Menstrual Age of Menarche: 13 Review of Systems Narrative Const Denies chills, Denies excessive sweating, Denies fever(s), Denies headache(s) and Denies night sweats Eyes Denies dry eyes and Denies irritation ENT Reports Normal hearing present and Denies headache(s) Card Denies chest pain, Denies chest pain at rest, Denies chest pain with activity, Denies claudication, Denies leg edema, Reports dyspnea on exertion, Denies orthopnea and Denies paroxysmal nocturnal dyspnea Resp Denies change in phlegm color, Denies chest congestion, Reports cough, Denies hemoptysis, Denies excessive phlegm production, Denies pain on inspiration, Denies pain with cough, Reports dyspnea on exertion, Denies stridor and Reports wheezing Musc Denies myalgias Neuro Reports Normal hearing present and Denies headache(s) Endo Denies excessive sweating Doyle/Lymph Denies lymphadenopathy Aller/Immun Reports wheezing Physical Exam Exam Exam: Vital Signs: Last Vital Signs Pulse 77 06/04/25 10:39 BP 142/88 H 06/04/25 10:39 Pulse Ox 99 06/04/25 10:39 Oxygen Delivery Method Room Air 06/04/25 10:39 BMI result Body Mass Index 29.7 Const General: cooperative, healthy appearing, comfortable, no acute distress, well developed and alert Orientation/consciousness: patient oriented x3 Limitations: no limitations HEENT Head: Yes normal to inspection, Yes normocephalic and Yes atraumatic Ears: hearing grossly normal bilaterally and external ears normal Eyes General: appearance normal, both eyes and all related structures Eyelids: Yes eyelids normal Sclerae: sclerae normal EOM: EOMs intact bilaterally Neck Neck: Yes normal visual inspection and Yes no lymphadenopathy Lymphatic: no lymphadenopathy noted Chest Chest palpation & inspection: normal inspection of the chest Resp Effort & Inspection: normal respiratory effort, able to speak in complete sentences, no audible wheezes, no cough, no stridor, not tachypneic, no tripod positioning and no use of accessory muscles Auscultation: clear to auscultation bilaterally Cardio Jugular venous distension: no JVD Rate: regular rate Rhythm: regular rhythm Skin Other: warm, dry General skin exam: no rashes or lesions noted Neuro General: patient oriented x3 Cranial nerves: Yes Normal hearing present Cognition (Neuro): normal cognition Gait exam (Neuro): Normal gait present Extrem General: Yes normal to inspection, Yes capillary refill normal, Yes no clubbing, cyanosis or edema and Yes no pedal edema Psych Appearance: grossly normal and well kempt Speech and movement: Normal speech and movement present and Clear speech present Affect: normal affect Attitude: cooperative Thought process: Normal thought process present Thought content: Normal thought content present Insight: Good insight present (Psych) Judgement: Good judgement present (Psych) Assessment & Plan Assessment & Plan (1) Asthma: Code(s): J45.909 - Unspecified asthma, uncomplicated Category: Medical (2) Environmental allergies: Code(s): Z91.09 - Other allergy status, other than to drugs and biological substances Category: Medical Plan Explained to the patient that her daily use of albuterol suggests her asthma is not adequately controlled with her current Advair regimen. Recommended adding Incruse to regimen. We discussed ordering a pulmonary function test to get baseline data on her lung function and blood work for an allergy panel, as allergies seem to be a significant trigger. We also discussed switching her allergy medication from Shayna to daily Xyzal for better symptom control. Will prescribe a home nebulizer for her to use when she is sick to help manage exacerbations and nebulized albuterol solution. We will plan to follow up in approximately 10 weeks to review the test results and assess her response to the new medication regimen. All questions were answered and patient is in agreement of plan. Patient was informed and verbally consented to the use of an ambient scribe for clinic note documentation during this visit. Orders: Orders Complete Blood Count Auto Diff Today Z91.09 - Other allergy status, other than to drugs and biological substances Resp Allergy Profile Region I Today Z91.09 - Other allergy status, other than to drugs and biological substances Immunoglobulin E Today Z91.09 - Other allergy status, other than to drugs and biological substances PFT pulmonary function test Today J45.909 - Unspecified asthma, uncomplicated Medications: New albuterol sulfate 2.5 mg (3 mL) inhalation Q4-6H PRN 90 mL 0RF shortness of breath or wheezing umeclidinium 62.5 mcg/actuation (Incruse Ellipta) 1 inh inhalation DAILY 30 ea 3RF Coding Level of Care Code New Pt Level 4 (74718) Diagnoses Asthma J45.909 Environmental allergies Z91.09
== END 2025-06-04 11:04 | disposition home or self-care (01) ==
LOC: HO.HPS 10:38
PROVIDERS: PCP Physician Assistant; Referring Provider Physician Assistant; Visit Provider Nurse Practitioner Family
DX: J45.909 Unspecified asthma, uncomplicated (principal); Z91.09 Other allergy status, other than to drugs and biological substances
CPT/HCPCS: 99204

== ENCOUNTER 2025-06-04 10:37 | Outpatient (REF) | payer OTHER, SELFPAY ==
[2025-06-04 11:21] LABS: MANUAL DIFF FLAG NO
[2025-06-04 11:27] LABS: Hematocrit 37.1 % (37.0-47.0); Hemoglobin 12.0 g/dl (12.0-16.0); Imm Gran Abs Auto 0.01 X10*3/uL (0.00-0.03); Imm Gran Pct Auto 0.2 % (0.0-0.4); Lymphocytes Absolute Auto 1.2 X10*3/uL (1.2-4.9); Mean Corpuscular HGB Conc 32.3 g/dl (31.0-35.0); Mean Corpuscular Hemoglobin 30.5 pg (27.0-33.0); Mean Corpuscular Volume 94.2 fL (80.0-98.0); NRBC Abs Auto 0.000 X10*3/uL (0.0-0.012); NRBC Pct Auto 0.0 /100WBC (0.0-0.2); Platelet Count 215 X10*3/uL (160-400); Red Blood Count 3.94 X10*6/uL (4.20-5.50); White Blood Count 4.7 X10*3/uL (4.8-10.8)
== END 2025-06-04 10:38 | disposition home or self-care (01) ==
LOC: HO.LAB 10:37
PROVIDERS: PCP Physician Assistant; Referring Provider Physician Assistant; Visit Provider Nurse Practitioner Family
DX: J45.909 Unspecified asthma, uncomplicated (principal); Z91.09 Other allergy status, other than to drugs and biological substances; Z87.891 Personal history of nicotine dependence; Z79.899 Other long term (current) drug therapy
CPT/HCPCS: 36415; 82785; 85025; 86003